=== PATIENT | female | born 1960 | race Caucasian/White ===

== ENCOUNTER 2020-02-07 10:48 | Emergency (ER) | payer BC, OTHER ==
--- NOTE | 2020-02-07 11:35 | EDM.PDOC ---
ED HPI GENERAL MEDICAL PROBLEM - General Chief Complaint: General Stated Complaint: COVID TEST Time Seen by Provider: 02/07/20 11:20 Source of Information: Reports: Patient History Limitations: Reports: No Limitations - History of Present Illness INITIAL COMMENTS - FREE TEXT/NARRATIVE: Patient presents to ER with concerns of a sore throat with COVID exposure. Was with a friend of hers 7 days ago who has now since tested positive. Is worried about exposing now her mother and granddaughter. Had not had any symptoms until this am when awoke with a mild soreness in her throat. Is able to eat and drink well. No fevers. No cough. Denies shortness of breath. No loss of taste or smell. No nausea or abdominal pain. Onset: Today Duration: Hour(s):, Constant Location: Reports: Head Quality: Reports: Ache Severity: Mild Associated Symptoms: Denies: Confusion, Chest Pain, Cough, Fever/Chills, Headaches, Loss of Appetite, Nausea/Vomiting, Shortness of Breath, Syncope, Weakness - Related Data Allergies Allergy/AdvReac Type Severity Reaction Status Date / Time red dye Allergy Hives Verified 02/07/20 10:51 Home Meds: Home Meds Esomeprazole Magnesium [Nexium] 40 mg PO DAILY 02/07/20 [History] Past Medical History Gastrointestinal History: Reports: GERD - Past Surgical History Female Surgical History: Reports: Tubal Ligation Musculoskeletal Surgical History: Reports: Other (See Below) Other Musculoskeletal Surgeries/Procedures:: toe surgery Social & Family History - Tobacco Use Smoking Status *Q: Never Smoker - Alcohol Use Days Per Week of Alcohol Use: 1 Number of Drinks Per Day: 1 Total Drinks Per Week: 1 - Recreational Drug Use Recreational Drug Use: No ED ROS GENERAL - Review of Systems Review Of Systems: See Below Constitutional: Denies: Fever, Chills, Malaise, Weakness, Fatigue, Diaphoresis, Decreased Appetite HEENT: Reports: Throat Pain. Denies: Ear Pain, Rhinitis, Sinus Problem, Vertigo Respiratory: Denies: Shortness of Breath, Cough Cardiovascular: Denies: Chest Pain, Edema, Lightheadedness Endocrine: Denies: Fatigue GI/Abdominal: Denies: Abdominal Pain, Nausea, Vomiting : Reports: No Symptoms Musculoskeletal: Reports: No Symptoms Skin: Reports: No Symptoms Neurological: Reports: No Symptoms ED EXAM, GENERAL - Physical Exam Exam: See Below Exam Limited By: No Limitations General Appearance: Alert, WD/WN, No Apparent Distress Ears: Normal External Exam, Normal TMs Nose: Normal Inspection, Normal Mucosa, No Blood Throat/Mouth: Normal Inspection, Normal Oropharynx Head: Normocephalic Neck: Normal Inspection, Supple, Non-Tender Respiratory/Chest: No Respiratory Distress, Lungs Clear, Normal Breath Sounds Cardiovascular: Regular Rate, Rhythm GI/Abdominal: Normal Bowel Sounds, Soft, Non-Tender Extremities: Normal Inspection, No Pedal Edema Neurological: Alert, Oriented Skin Exam: Warm, Dry Course - Vital Signs Last Recorded V/S: Last Vital Signs Temp 98.4 F 02/07/20 10:52 Pulse 65 02/07/20 10:52 Resp 20 02/07/20 10:52 BP 1170/87 H 02/07/20 10:52 Pulse Ox 99 02/07/20 10:52 - Orders/Labs/Meds Labs: Laboratory Tests 02/07/20 Range/Units 11:03 SARS-CoV-2 RNA (RT-PCR) Negative (NEGATIVE) - Re-Assessments/Exams Free Text/Narrative Re-Assessment/Exam: 02/07/20 11:34 COVID testing is negative. Patient reassured. Departure - Departure Time of Disposition: 11:34 Disposition: Home, Self-Care 01 Condition: Good Clinical Impression: Viral pharyngitis - Discharge Information *PRESCRIPTION DRUG MONITORING PROGRAM REVIEWED*: No *COPY OF PRESCRIPTION DRUG MONITORING REPORT IN PATIENT AC: No Instructions: Pharyngitis, [id number] Additional Instructions: 1. Push fluids 2. Diet as tolerated 3. Throat lozenges as needed 4. Tylenol for any discomfort 5. Follow up with primary care provider if sore throat symptoms worsen, have fever or any other concern. Sepsis Event Note (ED) - Evaluation Sepsis Screening Result: No Definite Risk - Focused Exam Vital Signs: Vital Signs Temp Pulse Resp BP Pulse Ox 02/07/20 10:52 98.4 F 65 20 1170/87 H 99
== END 2020-02-07 11:47 | disposition home or self-care (01) ==
LOC: VM.ED 10:48
DX: J02.9 Acute pharyngitis, unspecified (principal); K21.9 Gastro-esophageal reflux disease without esophagitis; Z20.828 Contact with and (suspected) exposure to other viral communicable diseases; Z79.899 Other long term (current) drug therapy; Z91.048 Other nonmedicinal substance allergy status
CPT/HCPCS: 99283; U0002